=== PATIENT | female | born 2000 | race African-American/Black ===

== ENCOUNTER 2024-02-19 18:17 | Emergency (ER) | payer OTHER, SELFPAY ==
[2024-02-19 18:25] VITALS: BP 137/80; PULSE 74; RESP 18; TEMP 36.6; O2SAT 100; BMI 22.8
--- NOTE | 2024-02-19 18:25 | ED_ITS ---
HPI - Abdominal Pain General Chief Complaint: Abdominal Pain Stated Complaint: adb px, vomiting, diarrhea Time Seen by Provider: 02/19/24 18:24 History of Present Illness HPI narrative: Patient is a 23-year-old healthy female who presents today with nausea vomiting diarrhea ongoing for about 1 week. She reports that she had a fever 2 nights ago but not anymore. She has some cramping some epigastric pain. She reports that other people in the house had the same thing last week but they have gotten better. She denies any recent travel or back packing. No recent antibiotics. She is trying to keep down cranberry juice and Gatorade. But she reports every time she eats she has stool. She reports nonbloody diarrhea and emesis. Related Data Previous Rx's Medication Instructions Recorded ondansetron 4 mg disintegrating 4 mg PO Q8H PRN nausea and 02/19/24 tablet vomiting #10 tabs Allergies Allergy/AdvReac Type Severity Reaction Status Date / Time benzododecinium Allergy Intermediate Swelling Verified 02/19/24 18:28 Patient History Social History Smoking Status: Never smoker Smoking Status: Never smoker Exam Initial Vital Signs Initial Vital Signs: Vital Signs Temperature 98 F 02/19/24 18:25 Pulse Rate 74 02/19/24 18:25 Respiratory Rate 18 02/19/24 18:25 Blood Pressure 137/80 02/19/24 18:25 Pulse Oximetry 100 02/19/24 18:25 Oxygen Delivery Method Room Air 02/19/24 18:25 GENERAL: Alert pleasant 23-year-old female and in no acute distress. HEENT: Head atraumatic,EOMI, pupils reactive, face symmetric, moist mucous membranes CARDIOVASCULAR: Regular rate and rhythm without murmurs, rubs or gallops. RESPIRATORY: Breath sounds equal bilaterally, no wheezes rales or rhonchi. ABDOMEN: Soft, mild epigastric pain no guarding no rebound negative Littlejohn's sign no lower abdominal pain or tenderness no distention EXTREMITIES: Normal range of motion, no clubbing or edema. Neurovascularly intact NEUROLOGICAL: Alert and oriented x4.Normal gait and speech. Cranial nerves II through XII grossly intact. SKIN: Warm, dry, no laceration, no petechiae, no rashes or lesions. Course Orders Ordered: ED Orders 02/19/24 19:00 Complete Blood Count AUTO DIFF Stat Comprehensive Metabolic Panel Stat Lipase Stat Discontinued Medications Sodium Chloride (Normal Saline 0.9%) 1,000 mls @ 1,000 mls/hr IV BOLUS ONE Stop: 02/19/24 19:27 Last Infusion: 02/19/24 19:42 Dose: Infused Documented By: Admin: 02/19/24 19:10 Dose: 1,000 mls/hr Documented By: MARK Ondansetron HCl (Ondansetron 4 Mg/2 Ml Inj) 4 mg IV NOW ONE Stop: 02/19/24 18:29 Last Admin: 02/19/24 19:10 Dose: 4 mg Documented By: MARK Ondansetron HCl (Ondansetron 4 Mg Odt Prepack) 1 bottle MISC DIRECTED ONE Stop: 02/19/24 19:46 Last Admin: 02/19/24 19:49 Dose: 1 bottle Documented By: YE Pantoprazole Sodium (Pantoprazole 40 Mg Vial) 40 mg IV NOW ONE Stop: 02/19/24 19:25 Last Admin: 02/19/24 19:43 Dose: Not Given Documented By: MARK Vital Signs Vital signs: Vital Signs - 8 hr 02/19/24 18:25 02/19/24 19:45 Temperature 98 F Pulse Rate 74 64 Respiratory Rate 18 18 Blood Pressure 137/80 124/63 Pulse Oximetry 100 10 L Oxygen Delivery Method Room Air Room Air MDM - Abdominal Pain Lab Data 02/19/24 19:00 02/19/24 19:00 Labs: Lab Results 02/19/24 Range/Units 19:00 WBC 6.7 (4.5-11.0) X10^3/uL RBC 4.46 (4.0-5.2) X10^6/uL Hgb 13.3 (12.0-16.0) g/dL Hct 40.0 (36-46) % MCV 89.6 (80-100) fL MCH 29.7 (26-34) PG MCHC 33.2 (30-36) % RDW 13.6 (11.6-14.8) % Plt Count 301 (150-400) X10^3/uL Neut % (Auto) 60.1 (50-75) % Lymph % (Auto) 27.1 (25-40) % [place] % (Auto) 9.2 (3-14) % Eos % (Auto) 2.8 (2-4) % Baso % (Auto) 0.8 (0-2) % Neut # (Auto) 4000 (0865-4454) /uL Lymph # (Auto) 1800 (0021-9148) /uL [place] # (Auto) 600 (0-900) /uL Eos # (Auto) 200 (0-450) /uL Baso # (Auto) 100 (0-100) /uL Sodium 137 (137-145) mmol/L Potassium 4.1 (3.4-5.1) mmol/L Chloride 105 (98-107) mmol/L Carbon Dioxide 23 (22-32) mmol/L BUN 9 (7-17) mg/dL Creatinine 0.62 (0.52-1.04) mg/dL Estimated GFR > 60 (>60) mL/min BUN/Creatinine Ratio 14.5 (6-22) Glucose 95 (70-100) mg/dL Calcium 9.4 (8.4-10.2) mg/dL Total Bilirubin 0.6 (0.2-1.3) mg/dL AST 22 (14-36) IU/L ALT 15 (<35) IU/L Alkaline Phosphatase 67 (38-126) U/L Total Protein 8.6 H (6.3-8.2) g/dL Albumin 4.8 (3.5-5.0) g/dL Globulin 3.8 (1.7-4.1) g/dL Albumin/Globulin Ratio 1.3 (1.0-2.8) Lipase 63 (23-300) U/L Point of care testing: Point of Care Testing Test Results Negative Urine Dip Bedside Urine Glucose Negative Bedside Urine Bilirubin - Negative Bedside Urine Ketone - Negative Urine Specific [place] 1.030 Bedside Urine Occult Blood - Negative Bedside Urine pH 6.0 Bedside Urine Protein - Negative Bedside Urine Urobilinogen - Negative Bedside Urine Nitrite - Negative Bedside Urine Leukocytes - Negative Esterase MDM Narrative Medical decision making narrative: Patient is a 23-year-old female who presents today with nausea vomiting diarrhea and abdominal pain ongoing for about 1 week. He overall appears well on exam she is mild pain over her epigastric area. Blood work has been reviewed she has no evidence of MOON or electrolyte abnormality no leukocytosis. Urinalysis is negative for and infection. Imaging no need for imaging at this time. Patient complains of pain proximal to the IV site. He has a right IV placed at the AC but having pain in her proximal arm. No obvious swelling. IV was stopped she received only some of the fluids. Blood work at this time is back and overall reassuring. She does not want another IV she is tolerating p.o. fluids. We discussed oral rehydration techniques. At this time with no right upper quadrant pain elevated bilirubin liver enzymes I see no need for imaging. Discharge Plan Departure Patient Disposition: Home Clinical Impression: Gastroenteritis Instructions: DI for Viral Gastroenteritis -- Adult Activity Restrictions/Additional Instructions: 1) You have been diagnosed with gastroenteritis 2) What to do: Drink frequent but small amounts of fluids. I recommend Gatorade or a Gatorade-like product, as it has small amounts of sugar and salts that improve fluid retention. You are doing a great job your kidneys and electrolytes are okay. You may eat small amounts of food as tolerated 3) Take medications as directed Zofran 4 mg every 8 hours if needed for nausea or vomiting--> [facility] in [place] 4) Follow up with your primary care provider in 2-3 days 5) Return to ER if you should have any new or worsening symptoms such as, unable to hold down fluids despite use of anti-nausea medications and the small volume oral rehydration strategy. Prescriptions: New ondansetron 4 mg tablet,disintegrating 4 mg PO Q8H PRN (Reason: nausea and vomiting) Qty: 10 0RF Referrals: Miscellaneous,Doctor, [Primary Care Provider] - Stand Alone Forms: Patient Portal/API
[2024-02-19] MEDS: SODIUM CHLORIDE 0.9% 1,000 ML 1000 ML IV (19:10)
[2024-02-19] MEDS: ONDANSETRON 4 MG/2 ML INJ IV (19:10)
[2024-02-19 19:12] LABS: Add Manual Diff / Slide Review NO; Basophils Absolute Auto 100 /uL (0-100); Basophils Percent Auto 0.8 % (0-2); Eosinophils Absolute Auto 200 /uL (0-450); Eosinophils Percent Auto 2.8 % (2-4); Hemoglobin 13.3 g/dL (12.0-16.0); Lymphocytes Absolute Auto 1800 /uL (1100-4500); Lymphocytes Percent Auto 27.1 % (25-40); Mean Corpuscular HGB Conc 33.2 % (30-36); Mean Corpuscular Hemoglobin 29.7 PG (26-34); Mean Corpuscular Volume 89.6 fL (80-100); Monocytes Absolute Auto 600 /uL (0-900); Monocytes Percent Auto 9.2 % (3-14); Neutrophils Absolute Auto 4000 /uL (1500-7000); Neutrophils Percent Auto 60.1 % (50-75); Platelet Count 301 X10^3/uL (150-400); Red Blood Cell Count 4.46 X10^6/uL (4.0-5.2); Red Cell Distribution Width 13.6 % (11.6-14.8); White Blood Cell Count 6.7 X10^3/uL (4.5-11.0)
[2024-02-19 19:21] LABS: Alanine Aminotransferase 15 IU/L (<35); Albumin 4.8 g/dL (3.5-5.0); Albumin Globulin Ratio 1.3 (1.0-2.8); Alkaline Phosphatase 67 U/L (38-126); Aspartate Aminotransferase 22 IU/L (14-36); BUN Creatinine Ratio 14.5 (6-22); Bilirubin Total 0.6 mg/dL (0.2-1.3); Blood Urea Nitrogen 9 mg/dL (7-17); Calcium 9.4 mg/dL (8.4-10.2); Carbon Dioxide 23 mmol/L (22-32); Chloride 105 mmol/L (98-107); Estimated Glomerular Filt Rate > 60 mL/min (>60); Globulin 3.8 g/dL (1.7-4.1); Glucose 95 mg/dL (70-100); HEMOLYSIS 29 (0-50); Lipase 63 U/L (23-300); Potassium 4.1 mmol/L (3.4-5.1); Sodium 137 mmol/L (137-145); Total Protein 8.6 g/dL (6.3-8.2)
--- NOTE | 2024-02-19 19:27 | PC.NURSE ---
Patient was having a welt formation approx 5 inches proximal to IV site with slight redness and pain. IV fluids were stopped. Rn notified.
[2024-02-19 19:45] VITALS: BP 124/63; PULSE 64; RESP 18; O2SAT 10
[2024-02-19] MEDS: ONDANSETRON 4 MG ODT PREPACK 1 BOTTLE MISC (19:49)
== END 2024-02-19 19:52 | disposition home or self-care (01) ==
PROVIDERS: Emergency Provider Emergency Medicine
DX: K52.9 Noninfective gastroenteritis and colitis, unspecified (principal); R10.13 Epigastric pain
CPT/HCPCS: 36415; 80053; 81003; 81025; 83690; 85025; 96361; 96374; 99284; J2405